=== PATIENT | female | born 1990 | race Caucasian/White ===

== ENCOUNTER → 2019-01-19 | Outpatient (CLI) | payer OTHER ==
--- NOTE | 2019-01-19 17:23 | REP ---
OB ULTRASOUND: Real-time sonographic evaluation of the gravid uterus performed utilizing transabdominal technique. There is a single living intrauterine gestation, estimated gestational age 14 weeks 1 day, EDC 07/19/2019. BPD 27 mm = 14 weeks 5 days HC 98 mm = 14 weeks 4 days AC 78 mm = 14 weeks 2 days FL 14 mm = 14 weeks 0 days HC/AC ratio 1.26, within normal range. Estimated weight 92 grams, 42nd percentile. heart rate 143 beats per minute. Placenta is anterior with no abruption. Amniotic fluid appears within normal limits. Electronically Signed by Prem Patel MD 01/20/2019 09:20 A
== END ==
LOC: M RAD 16:10
PROVIDERS: ATTEND Nurse Practitioner Family
DX: Z32.01 Encounter for pregnancy test, result positive (principal); Z3A.14 14 weeks gestation of pregnancy